=== PATIENT | male | born 1985 | race Caucasian/White ===

== ENCOUNTER 2022-03-04 20:05 | Emergency (ER) | payer OTHER ==
[2022-03-04 21:58] LABS: HEMOGLOBIN 12.7 gm/dl (14.0-17.5); RED BLOOD COUNT 4.46 M/UL (4.20-5.50); WHITE BLOOD COUNT 3.8 K/UL (4.5-11.0)
[2022-03-04 22:20] LABS: BUN/CREATININE RATIO 21 (0-10)
[2022-03-05] MEDS ORDERED: NAPROXEN500 MG PO (02:55)
== END 2022-03-05 03:00 | disposition home or self-care (01) ==
LOC: ER1 20:05
PROVIDERS: Family Medicine
DX: M79.641 Pain in right hand (principal); M79.642 Pain in left hand; F17.210 Nicotine dependence, cigarettes, uncomplicated; Z86.19 Personal history of other infectious and parasitic diseases
CPT/HCPCS: 73130; 80053; 80307; 81001; 85025; 96372; 99283; J1885

== ENCOUNTER 2022-03-05 21:05 | Emergency (ER) | payer OTHER ==
[~2022-03-05 21:05] MED LIST: NAPROXEN500 MG PO
== END 2022-03-06 01:49 | disposition left against medical advice (07) ==
LOC: ER1 21:05
DX: Z53.21 Procedure and treatment not carried out due to patient leaving prior to being seen by health care provider (principal)